=== PATIENT | female | born 1995 | race Caucasian/White ===

== ENCOUNTER 2017-08-16 17:41 | Emergency (ER) | payer SELFPAY ==
[2017-08-16 17:43] VITALS: BP 120/58; PULSE 80; RESP 16; TEMP 99.1; O2SAT 98
[2017-08-16] MEDS ORDERED: LIDOCAINE 1%/EPINEPHrine 1:100,000 SOLN 20 ML VIAL INFIL ONE (18:00)
[2017-08-16] MEDS ORDERED: BACT800T5 PO (18:23)
[2017-08-16] MEDS ORDERED: CEPH-460 PO (18:23)
--- NOTE | 2017-08-16 18:27 | PD ---
HPI Chief Complaint: Skin Problem Time Seen by Provider: 17:59 Travel History International Travel<30 days: No Contact w/Intl Traveler<30days: No Traveled to known affect area: No History of Present Illness HPI This patient was examined in the presence of a female nurse. 21-year-old female presents for evaluation of a painful area of skin redness and tenderness in the left groin region. Symptoms started 4-5 days ago, gradually worsening, which prompted evaluation. Painful, throbbing, constant, worse with palpation. There has been some purulent drainage. She does report that she shaves in her groin region on a regular basis. Denies any fevers or chills. She has no other complaints at this time. PFSH Past Medical History ?: Not LMP: 07/21/2017 Social History Alcohol Use: No Tobacco Use: Yes Allergies-Medications (Allergen,Severity, Reaction): Coded Allergies: No Known Allergies (Unverified , 08/16/17) Reported Meds & Prescriptions Reported Meds & Active Scripts Active Keflex (Cephalexin) 500 Mg Capsule 500 Mg PO TID 10 Days Bactrim DS (Sulfamethoxazole-Trimethoprim) 800-160 Mg Tab 1 Tab PO BID Review of Systems General / Constitutional: No: Fever, Chills Skin: Positive Other (positive for skin redness, pain, swelling, drainage) Physical Exam Narrative GENERAL: Well-developed well-nourished female in no acute distress SKIN: Warm and dry. There is a 2 cm fluctuant abscess in the left groin region which is tender to palpation. There is no labial involvement. CARDIOVASCULAR: Regular rate and rhythm. No murmur appreciated. RESPIRATORY: No accessory muscle use. Clear to auscultation. Breath sounds equal bilaterally. GASTROINTESTINAL: Abdomen soft, non-tender, nondistended. Hepatic and splenic margins not palpable. Data Data Last Documented VS Vital Signs Date Time Temp Pulse Resp B/P (MAP) Pulse Ox O2 Delivery O2 Flow Rate FiO2 08/16/17 17:43 99.1 80 16 120/58 (78) 98 Orders Orders Lidocai-Epi 1%-1:100,000 Inj (Xylocaine- (08/16/17 18:00) Wound Culture And Gram Stain (08/16/17 17:59) Ed Discharge Order (08/16/17 18:24) MDM Medical Decision Making Medical Screen Exam Complete: Yes Emergency Medical Condition: Yes Medical Record Reviewed: Yes Differential Diagnosis Cutaneous abscess, carbuncle, cellulitis, Bartholin's gland cyst Narrative Course Examination reveals an abscess in the left groin. Plan is for incision and drainage for which she verbally consents. Discussed the risk of scarring. Wound culture was performed. Local wound care provided. She is being discharged with Bactrim and Keflex pending culture results. Procedures Procedure Narrative INCISION AND DRAINAGE OF ABSCESS: The area was prepped and was sterilely draped. A subcutaneous wheal of 1% Xylocaine with a total number 7 mL was used to anesthetize the area. The area was properly anesthetized. A number 11 scalpel was used to make a 0.5 -cm incision across the area of the abscess. Cultures were obtained. The abscess was drained an irrigated with normal saline. Diagnosis Primary Impression: Groin abscess Additional Instructions: Medications prescribed. Warm bath 20 minutes at a time a few times a day. Return for any acutely new or worsening symptoms. Med/Other Pt SpecificInfo: Prescription(s) given, Wound Care Scripts Cephalexin (Keflex) 500 Mg Capsule 500 MG PO TID for Infection for 10 Days, CAP 0 Refills Prov: Flo Holguin MD 08/16/17 Sulfamethoxazole-Trimethoprim (Bactrim DS) 800-160 Mg Tab 1 TAB PO BID for Infection, #20 TAB 0 Refills Prov: Flo Holguin MD 08/16/17 Disposition: 01 DISCHARGE HOME Condition: Stable Maximino Polanco Aug 16, 2017 18:27
== END 2017-08-16 18:46 | disposition home or self-care (01) ==
LOC: NEPK 17:41
DX: L02.214 Cutaneous abscess of groin (principal); Z72.0 Tobacco use
CPT/HCPCS: 10060; 86403; 87070; 87205

== ENCOUNTER 2017-11-22 01:59 | Emergency (ER) | payer SELFPAY ==
[~2017-11-22] VITALS: Ht 167.6 cm; Wt 55.0 kg
[~2017-11-22 01:59] MED LIST: BACT800T5 PO; CEPH-460 PO
[2017-11-22 02:06] VITALS: BP 110/67; PULSE 71; RESP 20; TEMP 98.4; O2SAT 100
--- NOTE | 2017-11-22 02:46 | PD ---
HPI Chief Complaint: Abdominal Pain Time Seen by Provider: 02:26 Travel History International Travel<30 days: No Contact w/Intl Traveler<30days: No Traveled to known affect area: No History of Present Illness HPI The patient is a 22 year old female who presents to the [facility] emergency department with a history of abdominal pain in the midepigastric area and left upper quadrant of the abdomen that she reports has been coming and going for the last 2 weeks. She denies any alleviating or aggravating factors. She reports that the pain is sharp in character. She also reports concerned that her last menstrual cycle is late, however on further questioning her cycle was 28 days ago. She is unsure of how many days or in between her cycles. She denies ever being previously. She denies using any type of control or condoms. She denies ever having a pelvic exam in the past. She is sexually active. She reports that she has vaginal discharge that is been present for months and is white to yellow in color. She reports having a vaginal odor that is most prominent before her menstrual cycle. She denies having any known recent fevers. She reports that she did take a test approximately 2 weeks ago that was negative. On review of systems otherwise, the patient denies having any cough or congestion, neck pain, chest pain, shortness of breath, vomiting, diarrhea, urinary symptoms, or neurologic symptoms. She reports that she last moved her bowels earlier today. She denies having any blood in her stool. LMP: 28 days ago [facility] Past Medical History Narrative Medical The patient's past medical history is reportedly significant for epilepsy. She no longer takes any medication for this. Medical History: Denies Significant Hx Immunizations Current: Yes Seizures: Yes Tetanus Vaccination: Unknown Influenza Vaccination: No ?: Unknown LMP: 10-26-17 Past Surgical History Narrative Surgical The patient's past surgical history is significant for a tonsillectomy. Tonsillectomy: Yes Social History Alcohol Use: No Tobacco Use: Yes (One half pack per day) Substance Use: No Allergies-Medications (Allergen,Severity, Reaction): Coded Allergies: No Known Allergies (Unverified , 11/22/17) Reported Meds & Prescriptions Reported Meds & Active Scripts Active No Active Prescriptions or Reported Medications Review of Systems Except as stated in HPI: all other systems reviewed are Neg General / Constitutional: No: Fever Eyes: No: Visual changes HENT: No: Headaches Cardiovascular: No: Chest Pain or Discomfort Respiratory: No: Shortness of Breath Gastrointestinal: Positive: Abdominal Pain, No: Nausea, Vomiting, Diarrhea, Changes in Bowel Habits, Indigestion, Loss of Appetite Genitourinary: Positive: Discharge, No: Urgency, Frequency, Dysuria Musculoskeletal: No: Pain Skin: No Rash Neurologic: No: Weakness Psychiatric: No: Depression Endocrine: No: Polydipsia Hematologic/Lymphatic: No: Easy Bruising Physical Exam Narrative General: The patient is a well-developed well-nourished female in no acute distress. Head and Neck exam: Head is normocephalic atraumatic. Eyes: EOMI, pupils are equal round and reactive to light. Nose: Midline septum with pink mucous membranes Mouth: Dentition unremarkable. Moist mucus membranes. Posterior oropharynx is not erythematous. No tonsillar hypertrophy. Uvula midline. Airway patent. Neck: No palpable lymphadenopathy. No nuchal rigidity. No thyromegaly. Cardiovascular: Regular rate and rhythm without murmurs, gallops, or rubs. No pulse deficit to the extremities on simultaneous auscultation and palpation of her radial artery. Lungs: Clear to auscultation bilaterally. No wheezes, rhonchi, or rales. Abdomen: Soft, without tenderness to palpation in all 4 quadrants of the abdomen. No guarding, rebound, or rigidity. Normal bowel sounds are audible. No tenderness on palpation of McBurney's point. Negative Magdaleno sign. The patient denies having any abdominal pain at all at this time. Extremities: No clubbing, cyanosis, or edema. 2+ pulses in all 4 extremities. No calf tenderness on palpation. Back: No costovertebral angle tenderness to palpation. Neurologic Exam: Grossly nonfocal. Skin Exam: No rash noted. Intact skin that is warm and dry. Gynecologic exam: The patient was placed in the dorsal lithotomy position. Her external genitalia were examined. She had no evidence of rash or lesions. The speculum was placed into her vagina and the cervix was identified. The patient is noted on vaginal exam to have white to yellow vaginal discharge. There is no significant odor noted. No cervical friability. On Bimanual exam: she has no cervical motion tenderness. No adnexal tenderness or prominence noted on palpation. No uterine tenderness or enlargement noted on palpation. Data Data Last Documented VS Vital Signs Date Time Temp Pulse Resp B/P (MAP) Pulse Ox O2 Delivery O2 Flow Rate FiO2 11/22/17 02:54 Room Air 11/22/17 02:06 98.4 71 20 100 Orders Orders Complete Blood Count With Diff (11/22/17 02:39) Comprehensive Metabolic Panel (11/22/17 02:39) C-Reactive Protein (Crp) (11/22/17 02:39) Lipase (11/22/17 02:39) Urinalysis - C+S If Indicated (11/22/17 02:39) Wet Prep Profile (11/22/17 02:39) Gc And Chlamydia Pcr (11/22/17 02:39) Iv Access Insert/Monitor (11/22/17 02:39) Ecg Monitoring (11/22/17 02:39) Oximetry (11/22/17 02:39) Ed Urine Pregnancytest Poc (11/22/17 02:39) Labs Laboratory Tests Test 11/22/17 02:49 11/22/17 03:02 11/22/17 03:34 Urine Color YELLOW Urine Turbidity HAZY Urine pH 6.5 Urine Specific Davis 1.027 Urine Protein TRACE mg/dL Urine Glucose (UA) NEG mg/dL Urine Ketones NEG mg/dL Urine Occult Blood SMALL Urine Nitrite NEG Urine Bilirubin NEG Urine Urobilinogen 2.0 MG/DL Urine Leukocyte Esterase NEG Urine RBC 1 /hpf Urine WBC 4 /hpf Urine Squamous Epithelial Cells 10 /hpf Urine Bacteria RARE /hpf Urine Mucus FEW /lpf Microscopic Urinalysis Comment CULT NOT INDICATED White Blood Count 11.5 TH/MM3 Red Blood Count 5.08 MIL/MM3 Hemoglobin 14.8 GM/DL Hematocrit 43.7 % Mean Corpuscular Volume 86.0 FL Mean Corpuscular Hemoglobin 29.1 PG Mean Corpuscular Hemoglobin Concent 33.8 % Red Cell Distribution Width 13.3 % Platelet Count 291 TH/MM3 Mean Platelet Volume 8.3 FL Neutrophils (%) (Auto) 47.8 % Lymphocytes (%) (Auto) 37.2 % Monocytes (%) (Auto) 6.1 % Eosinophils (%) (Auto) 8.2 % Basophils (%) (Auto) 0.7 % Neutrophils # (Auto) 5.5 TH/MM3 Lymphocytes # (Auto) 4.3 TH/MM3 Monocytes # (Auto) 0.7 TH/MM3 Eosinophils # (Auto) 1.0 TH/MM3 Basophils # (Auto) 0.1 TH/MM3 CBC Comment DIFF FINAL Differential Comment Blood Urea Nitrogen 16 MG/DL Creatinine 1.01 MG/DL Random Glucose 94 MG/DL Total Protein 7.7 GM/DL Albumin 4.2 GM/DL Calcium Level 8.6 MG/DL Alkaline Phosphatase 59 U/L Aspartate Amino Transf (AST/SGOT) 22 U/L Alanine Aminotransferase (ALT/SGPT) 23 U/L Total Bilirubin 0.2 MG/DL Sodium Level 139 MEQ/L Potassium Level 3.8 MEQ/L Chloride Level 105 MEQ/L Carbon Dioxide Level 27.0 MEQ/L Anion Gap 7 MEQ/L Estimat Glomerular Filtration Rate 69 ML/MIN C-Reactive Protein LESS THAN 0.29 MG/DL Lipase 89 U/L Clue Cells (Wet Prep) PRESENT Vaginal Trichomonas (Wet Prep) NONE SEEN Vaginal Yeast (Wet Prep) NONE SEEN MDM Medical Decision Making Medical Screen Exam Complete: Yes Emergency Medical Condition: Yes Medical Record Reviewed: Yes Differential Diagnosis Gonorrhea, versus chlamydia, versus trichomoniasis, versus bacterial vaginosis, versus yeast vaginitis, versus Narrative Course During the course of the patient's emergency department visit, the patient's history, examination, and differential diagnosis were reviewed with the patient. The patient was placed on a desk monitor with oximetry and frequent blood pressure monitoring. The patient had IV access obtained and blood work sent for analysis. The patient's bedside test is negative. The patient's laboratory studies were reviewed and remarkable for a white count of 11.5, hemoglobin 14.8, platelets 291 with 8.2 eosinophils, CMP is remarkable for creatinine 1.01, C-reactive protein is less than 0.29, lipase 89, urinalysis shows small occult blood, rare bacteria, culture not indicated. Wet prep is positive for clue cells consistent with bacterial vaginosis. Based on the patient's gynecologic examination the patient was treated with Rocephin 1 g IV, Zithromax 1 g p.o. The patient will be discharged home with a prescription for Flagyl. The patient is instructed regarding the importance of following up with a assigner for continued evaluation and treatment if she has a recurrence of pelvic pain or vaginal discharge. She is given information regarding the [place] [facility] department and [facility]. She is instructed regarding the importance of using condoms for the prevention of and transmission of sexually transmitted infections. The patient is resting comfortably and feels better, is alert and in no distress. The patient's results and examination findings were discussed with the patient. The repeat examination is unremarkable and benign. The history, exam, diagnostic testing, and current condition do not suggest any significant pathology to warrant further testing, continued ED treatment, admission, or surgical evaluation at this point. The vital signs have been stable. The patient does not have uncontrollable pain, intractable vomiting, or other significant symptoms. The patient's condition is stable and appropriate for discharge. The patient will pursue further outpatient evaluation with a primary care physician or other designated or consulting physician as indicated in the discharge instructions. The patient is instructed to report back to the emergency department immediately for reexamination in the mean time if he/ she develops any new or worsening signs or symptoms. The patient expressed understanding and was agreeable with this plan. Diagnosis Primary Impression: Bacterial vaginosis Additional Impression: Abdominal pain Qualified Codes: R10.10 - Upper abdominal pain, unspecified Referrals: [facility] 1 week [facility] 1 week Patient Instructions: Abdominal Pain (ED), Bacterial Vaginosis (ED), General Instructions Med/Other Pt SpecificInfo: Prescription(s) given Scripts No Active Prescriptions or Reported Meds Disposition: 01 DISCHARGE HOME Condition: Stable Rachele Baumann MD November 22, 2017 02:46
[2017-11-22 03:14] LABS: AUTOMATED NEUTROPHIL # 5.5 TH/MM3 (1.8-7.7); BASOPHIL # 0.1 TH/MM3 (0-0.2); BASOPHIL % 0.7 % (0.0-2.0); EOSINOPHIL % 8.2 % (0.0-4.0); HEMATOCRIT 43.7 % (35.0-46.0); HEMOGLOBIN 14.8 GM/DL (11.6-15.3); LYMPH % 37.2 % (9.0-44.0); LYMPHOCYTE # 4.3 TH/MM3 (1.0-4.8); MEAN CORPUSCULAR HEMOGLOBIN 29.1 PG (27.0-34.0); MEAN CORPUSCULAR HGB CONC 33.8 % (32.0-36.0); MEAN PLATELET VOLUME 8.3 FL (7.0-11.0); MONO % 6.1 % (0.0-8.0); MONOCYTE # 0.7 TH/MM3 (0-0.9); NEUT % 47.8 % (16.0-70.0); PLATELET COUNT 291 TH/MM3 (150-450); RED BLOOD COUNT 5.08 MIL/MM3 (4.00-5.30); RED CELL DISTRIBUTION WIDTH 13.3 % (11.6-17.2); WHITE BLOOD COUNT 11.5 TH/MM3 (4.0-11.0)
[2017-11-22 03:20] LABS: BACTERIA, URINE RARE /hpf; BILIRUBIN, URINE NEG (NEG); BLOOD, URINE SMALL (NEG); GLUCOSE,URINE NEG (NEG); KETONE, URINE NEG (NEG); MUCUS URINE FEW /lpf (OCC); NITRITE,URINE NEG (NEG); PH, URINE 6.5 (5.0-8.5); SQUAMOUS EPITHELIAL CELL URINE 10 /hpf (0-5); URINE COLOR YELLOW (YELLW/STRAW); URINE LEUKOCYTE ESTERASE NEG (NEG)
[2017-11-22 03:35] LABS: ALBUMIN 4.2 GM/DL (3.4-5.0); ALKALINE PHOSPHATASE 59 U/L (45-117); ALT (GPT) 23 U/L (10-53); AST (GOT) 22 U/L (15-37); BLOOD UREA NITROGEN 16 MG/DL (7-18); C-REACTIVE PROTEIN LESS THAN 0.29 MG/DL (0.00-0.30); CALCIUM 8.6 MG/DL (8.5-10.1); CHLORIDE 105 MEQ/L (98-107); CREATININE 1.01 MG/DL (0.50-1.00); GLOMERULAR FILTRATION RATE 69 ML/MIN (>89); GLUCOSE,RANDOM 94 MG/DL (74-106); SODIUM (NA) 139 MEQ/L (136-145); TOTAL BILIRUBIN ADULT 0.2 MG/DL (0.2-1.0); TOTAL PROTEIN 7.7 GM/DL (6.4-8.2)
[2017-11-22] MEDS ORDERED: AZITHROMYCIN PWD FOR SUSP 1 GM PACKET PO ONE (04:15)
[2017-11-22] MEDS ORDERED: cefTRIAXone INJ 1,000 MG in SODIUM CHLORIDE 0.9% INJ 100 ML IV ONE (04:15)
[2017-11-22] MEDS ORDERED: METR-1 PO (04:58)
== END 2017-11-22 05:28 | disposition home or self-care (01) ==
LOC: NEPE 01:59
DX: N76.0 Acute vaginitis (principal); R10.10 Upper abdominal pain, unspecified; G40.909 Epilepsy, unspecified, not intractable, without status epilepticus; F17.200 Nicotine dependence, unspecified, uncomplicated
CPT/HCPCS: 80053; 81001; 83690; 84703; 85025; 86140; 87210; 87491; 87591; 96365; 99284; J0696